=== PATIENT | female | born 1940 | race Caucasian/White ===

== ENCOUNTER 2021-01-07 10:01 | Outpatient (REF) | payer MEDICARE, SELFPAY ==
--- NOTE | 2021-01-07 13:56 | MHC.AU.ANH ---
Adult Audiological Evaluation Date of Visit: 01/07/21 Reason for Appointment: History of hearing loss and hearing aid use. Patient questions if there has been a change in her hearing. She has been using a pair of RICs obtained at [facility] for approximately 8 years. Previous Hearing Test Results: Several years ago at another clinic- results not immediately available for review Ear History: Ear Deformity: None Reported Recent Ear Drainage: None Reported Recent Ear Pain: None Reported Family History of Hearing Loss?: Yes: Brother Recent Ear Infections: None Reported Ear Infections in Childhood: None Reported Previous Ear Surgery: None Reported Bothersome Tinnitus/Ringing/Noises in Ears: None Reported Ear used on the phone: Right Ear Blocked/Full Sensation in Ear(s): None Reported History of occupational noise exposure?: No History: No Medical History: Medical History: Cancer (treated surgically- no chemotherapy needed), Headache, Measles, Mumps Medication List: Chlorthalidone, Amlodipine, Rosuvastatin, Potassium CL, Metformin, Vitamin B-12, Vitamin D3, Flonase Otoscopy: Right Ear: Partially occluded with cerumen Left Ear: Partially occluded with cerumen Tympanometry: Tympanometry performed due to: To assess integrity of the middle ear system Right Ear: Normal Middle Ear System (Type A) Left Ear: Normal Middle Ear System (Type A) Hearing Evaluation: Transducer(s) Used: Insert Earphones Method: Conventional Audiometry Stimuli Used: Pure Tones Right Ear: Description of Hearing: Normal sloping to severe sensorineural hearing loss Left Ear: Description of Hearing: Normal sloping to severe sensorineural hearing loss Speech Recognition Threshold (SRT): Method Used: Recorded Lists Stimuli Used: Spondee Words Right Ear: 35 dBHL Left Ear: 35 dBHL Word Discrimination: Method: Recorded Lists Word Lists Used: W-22 Right Ear: 80% at 70 dBHL Left Ear: 84% at 65 dBHL Most Comfortable Level (MCL): Right Ear: 70 dBHL Left Ear: 65 dBHL QuickSIN: Unaided: 10 dB SNR Loss, Aided: 10 dB SNR Loss Both conditions suggest moderately elevated difficulty listening in noise. Aided Testin% at 50 dBHL (in quiet) Recommendations: Audiological re-evaluation in one year. The patient's hearing aids do not appear to be offering benefit in noisy situations at their current settings, based on QuickSIN scores. Adjustments may be needed. Follow-up with the dispensing clinic, [facility], for hearing aid adjustments. Diagnosis: Primary Diagnosis: H90.3 Bilateral Sensorineural Hearing Loss Signature: Provider: Gordon Lockwood, [email or web address]-A
== END 2021-01-07 10:02 | disposition home or self-care (01) ==
LOC: HO.SH 10:01
PROVIDERS: Visit Provider Internal Medicine
DX: H91.90 Unspecified hearing loss, unspecified ear (principal)
CPT/HCPCS: 92557; 92567